=== PATIENT | male | born 1955 | race Caucasian/White ===

== ENCOUNTER 2022-11-28 11:13 | Inpatient (IN) | payer MEDICARE ==
[~2022-11-28] VITALS: Ht 182.9 cm; Wt 127.7 kg
[2022-11-28 11:52] LABS: BASOPHILS # (AUTO) 0.1 X10'3 (0-0.2); BASOPHILS % (AUTO) 0.6 % (0-1); EOSINOPHILS # (AUTO) 0.2 X10'3 (0-0.9); EOSINOPHILS % (AUTO) 2.1 % (0-6); HEMATOCRIT 32.5 % (42.0-52.0); HEMOGLOBIN 10.3 g/dl (14.0-17.9); LYMPHOCYTES # (AUTO) 0.9 X10'3 (1.1-4.8); LYMPHOCYTES % (AUTO) 10.4 % (21-51); MEAN CORPUSCULAR HEMOGLOBIN 21.9 PG (27.0-31.0); MEAN CORPUSCULAR HGB CONC 31.9 g/dL (33.0-36.5); MEAN CORPUSCULAR VOLUME 68.8 FL (78-98); MEAN PLATELET VOLUME 7.5 FL (7.4-10.4); MONOCYTES # (AUTO) 0.5 X10'3 (0-0.9); MONOCYTES % (AUTO) 5.7 % (2-12); NEUTROPHILS # (AUTO) 7.4 X10'3 (1.8-7.7); NEUTROPHILS % (AUTO) 81.2 % (42-75); PLATELET COUNT 516 X10'3 (140-440); RED BLOOD COUNT 4.72 X10'6 (4.70-6.10); RED CELL DISTRIBUTION WIDTH 17.7 % (11.5-14.5); WHITE BLOOD COUNT 9.1 X10'3 (4.5-11.0)
[2022-11-28] MEDS ORDERED: dextrose 50%-water 50ml dispensing syringe IV PRN (12:05)
[2022-11-28] MEDS ORDERED: dextrose 50%-water 50ml dispensing syringe IV ONE (12:05)
[2022-11-28 12:11] LABS: ALANINE AMINOTRANSFERASE 19 U/L (12-78); ALBUMIN 3.4 G/DL (3.4-5.0); ALBUMIN/GLOBULIN RATIO 1.1 (1.1-1.5); ALKALINE PHOSPHATASE 57 IU/L (46-116); ANION GAP 9 (8-16); ASPARTATE AMINO TRANSFERASE 20 U/L (10-37); BILIRUBIN,TOTAL 0.3 MG/DL (0.1-1.0); BLOOD UREA NITROGEN 17 MG/DL (7-18); BUN/CREATININE RATIO 15.6 (10.0-20.0); CHLORIDE 102 MMOL/L (99-107); CREATININE 1.09 MG/DL (0.60-1.10); GLUCOSE 89 MG/DL (70-104); SODIUM 139 MMOL/L (135-145); TOTAL CARBON DIOXIDE 28.2 MMOL/L (24-32); TOTAL PROTEIN 6.5 G/DL (6.4-8.2); eGFR 68 ML/MIN
[2022-11-28 12:14] LABS: POTASSIUM 2.7 MMOL/L (3.5-5.1)
[2022-11-28 12:17] LABS: PLATELET ESTIMATE INCREASED
[2022-11-28 12:18] LABS: ANISOCYTOSIS 1+; HYPOCHROMASIA 1+; MICROCYTOSIS 2+
--- NOTE | 2022-11-28 12:18 | NUR ---
Bs was 61mg/dl. Dr. Dent notified. D50 1 amp IV given as ordered. Addendum: 11/28/22 at 1240 by SALLY Repeat BS was 112mg/dl after the D50 IV given
[2022-11-28 12:19] LABS: ELLIPTOCYTES 1+; SPHEROCYTES FEW
--- NOTE | 2022-11-28 12:24 | NUR ---
SBP >200, Dr. Yoder notified about this. Per Dr. Yoder, the patient will be admitted. Addendum: 11/28/22 at 1351 by SALLY Hydralazine IV given for high BP prior to going to CT scan
[2022-11-28] MEDS ORDERED: potassium Cl 20 mEq SR tablet PO ONE (12:30)
[2022-11-28] MEDS ORDERED: ondansetron/PF 4mg/2ml inj IV PRN (13:10)
[2022-11-28] MEDS ORDERED: PERFLUTREN PROTEIN-A MICROSPHR (Optison) 0.22 MG/ML 3ML VIAL IV ONE (13:10)
[2022-11-28] MEDS ORDERED: magnesium hydroxide 30ml (MOM) UD suspension PO PRN (13:10)
[2022-11-28] MEDS ORDERED: mag hydrox/Alum hydrox/simeth 30ml oral suspension PO PRN (13:10)
[2022-11-28] MEDS ORDERED: magnesium 4gm in 100ml NS 100 ML IV PRN (13:10)
[2022-11-28] MEDS ORDERED: magnesium 2GM in 50ml NS 50 ML IV PRN (13:10)
[2022-11-28] MEDS ORDERED: potassium Cl 40MEQ/1/2NS 520ml 520 ML IV PRN (13:10)
[2022-11-28] MEDS ORDERED: magnesium Cl slow-release 64mg tablet PO PRN (13:10)
[2022-11-28] MEDS: dextrose 5%-1/2 normal saline 1,000 ML IV SCH (13:27)
[2022-11-28] MEDS: hydrALAZINE 20mg/ml inj. IV PRN (13:38)
[2022-11-28] MEDS: labetalol 100mg tablet PO SCH ×2 (13:56→19:58)
[2022-11-28] MEDS ORDERED: ATOR40TA72 PO (14:32)
[2022-11-28] MEDS ORDERED: PANT20TA18 PO (14:32)
[2022-11-28] MEDS ORDERED: FLUV100T21 PO (14:32)
[2022-11-28] MEDS ORDERED: TEMA30CA PO (14:32)
[2022-11-28] MEDS ORDERED: LORA-269 PO (14:32)
[2022-11-28] MEDS ORDERED: OXYB10TA30 PO (14:32)
[2022-11-28] MEDS ORDERED: CLON0.1T2 PO (14:32)
[2022-11-28] MEDS ORDERED: ROPI0.5T4 PO (14:32)
[2022-11-28] MEDS ORDERED: LIOT25TA12 PO (14:32)
[2022-11-28] MEDS ORDERED: METF-438 PO (14:32)
[2022-11-28] MEDS ORDERED: DORZ10DR10 EACHEYE (14:32)
[2022-11-28] MEDS ORDERED: LISI40TA13 PO (14:32)
[2022-11-28] MEDS ORDERED: BUSP15TA3 PO (14:32)
[2022-11-28] MEDS ORDERED: CHOL50004 PO (14:36)
[2022-11-28] MEDS ORDERED: ASPI-611 PO (14:36)
--- NOTE | 2022-11-28 14:40 | NUR ---
Paged Dr. Barr PAGER ID: [phone] MESSAGE: ABE Orozco RN RE: Brendan Cheney. Reporting second troponin 77, the first one was 73.
--- NOTE | 2022-11-28 16:02 | NUR ---
PAGER ID: [phone] MESSAGE: Benitez Tripathi Re: Deyvi Cheney [id number] Patient just had a critical Trop of 84 slightly elevated from previous Trop
[2022-11-28] MEDS ORDERED: LidoCAINE 2% Topical Jelly 11mL syringe TOP ONE (16:55)
[2022-11-28] MEDS: potassium Cl 20 mEq SR tablet PO PRN ×2 (17:24→22:02)
--- NOTE | 2022-11-28 17:38 | NUR ---
PAGER ID: [phone] MESSAGE: Benitez Tele [id number] Deyvi Penaloza Patient medications are all reviewed in the charting system at this time waiting for you to address them. Thanks Benitez.
[2022-11-28 18:00] VITALS: BP 178/81
--- NOTE | 2022-11-28 18:25 | NUR ---
Problems reprioritized. Patient report given TO BEKA RN, questions answered & plan of care reviewed with .
[2022-11-28] MEDS: docusate sod 100mg capsule PO SCH (19:58)
[2022-11-28] MEDS: K and/or MAG REPLACEMENT MC SCH (20:00)
[2022-11-28] MEDS: acetaminophen 325mg tablet PO PRN (20:02)
[2022-11-28] MEDS: furosemide 40mg/4ml inj IV SCH (21:10)
[2022-11-28 22:00] VITALS: BP 158/80
[2022-11-28] MEDS ORDERED: cloNIDine 0.1 mg tablet PO ONE (22:30)
[2022-11-28] MEDS ORDERED: LORazepam 1 MG tablet PO ONE (22:30)
[2022-11-29 02:00] VITALS: BP 167/68
--- NOTE | 2022-11-29 02:21 | NUR ---
I AGREE WITH STEAM SHOVEL OILER ASSESSMENT
[2022-11-29] MEDS: hydrALAZINE 20mg/ml inj. IV PRN ×2 (03:39→11:22)
[2022-11-29 05:39] LABS: BASOPHILS # (AUTO) 0.1 X10'3 (0-0.2); BASOPHILS % (AUTO) 1.3 % (0-1); EOSINOPHILS # (AUTO) 0.1 X10'3 (0-0.9); EOSINOPHILS % (AUTO) 1.6 % (0-6); HEMATOCRIT 32.9 % (42.0-52.0); HEMOGLOBIN 10.5 g/dl (14.0-17.9); LYMPHOCYTES # (AUTO) 1.2 X10'3 (1.1-4.8); LYMPHOCYTES % (AUTO) 13.7 % (21-51); MEAN CORPUSCULAR HGB CONC 31.9 g/dL (33.0-36.5); MEAN CORPUSCULAR VOLUME 69.1 FL (78-98); MEAN PLATELET VOLUME 7.7 FL (7.4-10.4); MONOCYTES # (AUTO) 0.9 X10'3 (0-0.9); MONOCYTES % (AUTO) 10.4 % (2-12); NEUTROPHILS # (AUTO) 6.5 X10'3 (1.8-7.7); PLATELET COUNT 540 X10'3 (140-440); RED BLOOD COUNT 4.76 X10'6 (4.70-6.10); RED CELL DISTRIBUTION WIDTH 17.2 % (11.5-14.5); WHITE BLOOD COUNT 8.9 X10'3 (4.5-11.0)
[2022-11-29 06:00] LABS: ALANINE AMINOTRANSFERASE 20 U/L (12-78); ALBUMIN 3.2 G/DL (3.4-5.0); ALBUMIN/GLOBULIN RATIO 1.1 (1.1-1.5); ALKALINE PHOSPHATASE 61 IU/L (46-116); ANION GAP 10 (8-16); ASPARTATE AMINO TRANSFERASE 19 U/L (10-37); BILIRUBIN,TOTAL 0.4 MG/DL (0.1-1.0); BLOOD UREA NITROGEN 11 MG/DL (7-18); BUN/CREATININE RATIO 9.3 (10.0-20.0); CALCIUM 8.6 MG/DL (8.5-10.1); CHLORIDE 102 MMOL/L (99-107); CREATININE 1.18 MG/DL (0.60-1.10); GLUCOSE 182 MG/DL (70-104); MAGNESIUM 1.5 MG/DL (1.5-2.4); POTASSIUM 3.2 MMOL/L (3.5-5.1); SODIUM 139 MMOL/L (135-145); TOTAL CARBON DIOXIDE 26.7 MMOL/L (24-32); TOTAL PROTEIN 6.2 G/DL (6.4-8.2); eGFR 62 ML/MIN
--- NOTE | 2022-11-29 06:20 | NUR ---
Patient in room PCU 3014. I have received report from Linda RN and had the opportunity to ask questions and assume patient care.
[2022-11-29 06:49] VITALS: BP 171/80
[2022-11-29] MEDS ORDERED: LIOthyronine 25mcg tablet PO SCH (08:00)
[2022-11-29] MEDS ORDERED: lisinopril 20mg tablet PO SCH ×2 (08:00→08:20)
[2022-11-29] MEDS: K and/or MAG REPLACEMENT MC SCH ×2 (08:00→20:00)
--- NOTE | 2022-11-29 08:03 | NUR ---
PAGER ID: [phone] MESSAGE: Benitez Tele [phone] re: [id number] Deyvi Penaloza In your notes it said patient is DNR but code status is still FULL. Thanks Benitez.
[2022-11-29] MEDS: furosemide 40mg/4ml inj IV SCH (08:29)
[2022-11-29] MEDS: enoxaparin 40mg/0.4ml syringe SUBCUT SCH (08:30)
[2022-11-29] MEDS: atorvastatin 20mg tablet PO SCH (08:31)
[2022-11-29] MEDS: pantoprazole 40mg Tablet.DR PO SCH (08:31)
[2022-11-29] MEDS: aspirin 81mg, enteric-coated 1 TAB TABLET.DR PO SCH (08:32)
[2022-11-29] MEDS: busPIRone 15mg tablet PO SCH ×3 (08:32→20:43)
[2022-11-29] MEDS: cholecalciferol (vitamin D3) 1,000 unit (25mcg) tablet PO SCH (08:32)
[2022-11-29] MEDS: potassium Cl 20 mEq SR tablet PO PRN ×3 (08:33→16:29)
[2022-11-29] MEDS: docusate sod 100mg capsule PO SCH ×2 (08:33→20:43)
[2022-11-29] MEDS: labetalol 100mg tablet PO SCH ×2 (08:33→20:43)
[2022-11-29] MEDS: LORazepam 1 MG tablet PO SCH ×2 (08:34→20:41)
[2022-11-29] MEDS: acetaminophen 325mg tablet PO PRN (08:36)
[2022-11-29] MEDS: oxybutynin 5mg tablet PO SCH ×2 (08:36→20:42)
[2022-11-29] MEDS: dorzolamide/timolol (Cosopt) ophthalmic drops 10ml bottle EACHEYE SCH ×2 (09:23→20:44)
[2022-11-29] MEDS: dextrose 5%-1/2 normal saline 1,000 ML IV SCH (09:29)
[2022-11-29] MEDS: liothyronine sod 5mcg tablet PO SCH (09:45)
--- NOTE | 2022-11-29 10:04 | NUR ---
PAGER ID: [phone] MESSAGE: Oneil JONES Tele, [phone], rm # [phone] Shravan Faye stated does not want to be a DNR and wants a Full code. I believe it needs more discussion with pt. due to changing his mind. Thanks.
[2022-11-29 11:13] VITALS: BP 172/87
--- NOTE | 2022-11-29 12:34 | NUR ---
pt. IV bleeding, DC IV and wrapped in Coban and gauze. changed bedding and gown. Cannula fully intact upon DC. pt. resting comfortable in bed with visitor at bedside.
--- NOTE | 2022-11-29 14:43 | NUR ---
Nutrition Consult "hypoglycemia": Pt admit DX hypoglycemic hx DM takes metformin BID and 80 units Lantus daily per EMR. Pt passed out on toilet at home w/ Glu 38mg/dl and hx multiple falls as well as hypoglycemic events recently per EMR. A1C pending this admit though DM ed likely not appropriate at this time given hx frequent low Glu per EMR; will monitor for A1C results. Pt reports no decreased intake or wt loss per RN Malnutrition Screen. Addendum: 11/29/22 at [address] Amended: Links added.
[2022-11-29 14:54] LABS: HEMOGLOBIN A1C 6.5 % (4.5-6.2)
--- NOTE | 2022-11-29 15:39 | NUR ---
pt. sat 02 dropped to 79% pulse ox. put nasal cannula 2L brought 02 up to 98% will continue to monitor.
--- NOTE | 2022-11-29 17:03 | NUR ---
took pt. off 02 cannula 2L pt. went to 89%02, told pt. to cough and deep breathe and brought 02 up to 98%, educated pt. to take deep breaths slowly in and out, will continue to monitor.
--- NOTE | 2022-11-29 17:16 | NUR ---
Oneil JONES Tele, ext. [phone], rm# [phone] Shravan Faye pt. evening blood glucose 286. we still don't have hyperglycemic protocol. would you like me to add that on? please call if you would like. Addendum: 11/29/22 at 1744 by Oneil Heaton RN CALLED BACK, STATED TO PUT PT. ON THE HYPERGLYCEMIC PROTOCOL.
[2022-11-29] MEDS ORDERED: DEXTROSE 15 GM of carb/4 tabs (each vial/BOTTLE has 4 tablets) PO PRN ×2 (17:45)
[2022-11-29] MEDS ORDERED: dextrose 50%-water 50ml dispensing syringe IV PRN ×2 (17:45)
[2022-11-29] MEDS ORDERED: MESSAGE TO PHARMACY PO ONE (17:45)
[2022-11-29] MEDS ORDERED: glucagon, human recombinant 1mg kit SUBCUT PRN (17:45)
[2022-11-29 18:00] VITALS: BP 158/72
--- NOTE | 2022-11-29 18:36 | NUR ---
Problems reprioritized. Patient report given to Jus RN, questions answered & plan of care reviewed with .
[2022-11-29] MEDS ORDERED: insulin glargine (Lantus) pen - multi-dose SQ SCH (21:00)
[2022-11-29] MEDS ORDERED: cloNIDine 0.1 mg tablet PO SCH (21:00)
[2022-11-29] MEDS ORDERED: temazepam 15mg capsule PO SCH (21:00)
[2022-11-29] MEDS ORDERED: fluvoxamine 25 MG tablet PO SCH (21:00)
[2022-11-29] MEDS ORDERED: ROPINIRole 0.25mg tablet PO SCH (21:00)
[2022-11-29] MEDS: insulin Lispro (HumaLOG) vial - multi-dose SQ SCH (21:34)
[2022-11-30 02:00] VITALS: BP 140/63
--- NOTE | 2022-11-30 05:40 | NUR ---
AGREE WITH COMMUNITY DIRECTOR ASSESSMENTS
[2022-11-30 06:52] LABS: BASOPHILS # (AUTO) 0.1 X10'3 (0-0.2); BASOPHILS % (AUTO) 1.3 % (0-1); EOSINOPHILS # (AUTO) 0.1 X10'3 (0-0.9); EOSINOPHILS % (AUTO) 1.4 % (0-6); HEMATOCRIT 33.9 % (42.0-52.0); HEMOGLOBIN 10.8 g/dl (14.0-17.9); LYMPHOCYTES # (AUTO) 0.8 X10'3 (1.1-4.8); MEAN CORPUSCULAR HEMOGLOBIN 22.2 PG (27.0-31.0); MEAN CORPUSCULAR VOLUME 69.4 FL (78-98); MEAN PLATELET VOLUME 8.1 FL (7.4-10.4); MONOCYTES # (AUTO) 0.7 X10'3 (0-0.9); MONOCYTES % (AUTO) 6.7 % (2-12); NEUTROPHILS # (AUTO) 8.4 X10'3 (1.8-7.7); NEUTROPHILS % (AUTO) 82.6 % (42-75); PLATELET COUNT 564 X10'3 (140-440); RED BLOOD COUNT 4.88 X10'6 (4.70-6.10); RED CELL DISTRIBUTION WIDTH 18.2 % (11.5-14.5); WHITE BLOOD COUNT 10.2 X10'3 (4.5-11.0)
[2022-11-30 07:14] LABS: ALANINE AMINOTRANSFERASE 21 U/L (12-78); ALBUMIN 3.4 G/DL (3.4-5.0); ALBUMIN/GLOBULIN RATIO 1.1 (1.1-1.5); ALKALINE PHOSPHATASE 66 IU/L (46-116); ANION GAP 12 (8-16); ASPARTATE AMINO TRANSFERASE 16 U/L (10-37); BILIRUBIN,TOTAL 0.4 MG/DL (0.1-1.0); BLOOD UREA NITROGEN 16 MG/DL (7-18); CALCIUM 9.7 MG/DL (8.5-10.1); CHLORIDE 102 MMOL/L (99-107); CREATININE 1.33 MG/DL (0.60-1.10); GLUCOSE 270 MG/DL (70-104); MAGNESIUM 1.6 MG/DL (1.5-2.4); POTASSIUM 3.9 MMOL/L (3.5-5.1); SODIUM 142 MMOL/L (135-145); TOTAL CARBON DIOXIDE 28.1 MMOL/L (24-32); TOTAL PROTEIN 6.6 G/DL (6.4-8.2); eGFR 54 ML/MIN
[2022-11-30 07:30] VITALS: BP 169/82
[2022-11-30] MEDS: dorzolamide/timolol (Cosopt) ophthalmic drops 10ml bottle EACHEYE SCH (07:55)
[2022-11-30] MEDS: pantoprazole 40mg Tablet.DR PO SCH (07:56)
[2022-11-30] MEDS: liothyronine sod 5mcg tablet PO SCH (07:57)
[2022-11-30] MEDS: LORazepam 1 MG tablet PO SCH (07:58)
[2022-11-30] MEDS: docusate sod 100mg capsule PO SCH (07:58)
[2022-11-30] MEDS: cholecalciferol (vitamin D3) 1,000 unit (25mcg) tablet PO SCH (07:58)
[2022-11-30] MEDS: atorvastatin 20mg tablet PO SCH (07:59)
[2022-11-30] MEDS: oxybutynin 5mg tablet PO SCH (07:59)
[2022-11-30] MEDS: aspirin 81mg, enteric-coated 1 TAB TABLET.DR PO SCH (07:59)
[2022-11-30] MEDS: busPIRone 15mg tablet PO SCH ×2 (07:59→13:48)
[2022-11-30] MEDS: labetalol 100mg tablet PO SCH (07:59)
[2022-11-30] MEDS: K and/or MAG REPLACEMENT MC SCH (08:00)
[2022-11-30] MEDS: acetaminophen 325mg tablet PO PRN (08:00)
[2022-11-30] MEDS: enoxaparin 40mg/0.4ml syringe SUBCUT SCH (08:00)
[2022-11-30] MEDS: insulin Lispro (HumaLOG) vial - multi-dose SQ SCH (08:11)
[2022-11-30 08:30] VITALS: BP_SYST 160; BP_SYST 174; BP_DIAS 65; BP_DIAS 84
--- NOTE | 2022-11-30 08:45 | NUR ---
F/u 11/30: Pt A1C results 6.5% appropriate per ADA guidelines. DM ed not appropriate at this time. Addendum: 11/30/22 at [address] Amended: Links added.
[2022-11-30] MEDS ORDERED: saliva stimulant agent 45ml spray MM PRN (09:00)
--- NOTE | 2022-11-30 09:30 | NUR ---
HOSPITALIST AWARE OF PT'S SYMPTOMS WHILE STANDING AND ORTHOSTATIC CHANGES IN BP AND HR. MADE AWARE THAT PT. C/O OF R UPPER LEG PAIN, AND INCREASED NEED OF 02. STATES HE PLANS ON DISCHARGING PT. pT. HAD OP UROLOGIST AND WILL GO HOME WITH F/C PER MD.
[2022-11-30 11:00] VITALS: BP 119/53
--- NOTE | 2022-11-30 11:10 | NUR ---
O2 Sat at rest on room air:_88__% If below 89%: Recovery O2 Sat at rest on _2__LPM:__93_%:___% via (mask/nasal cannula, etc..) No further documentation is necessary. If O2 Sat did not drop below 89% on room air,ambulate patient on room air. O2 Sat while ambulating on room air:_86__% Recovery O2 Sat while ambulating on __98_LPM:_2__% No further documentation is necessary. If patient does not drop below 89% while ambulating, he/she does not qualify for home O2.
[2022-11-30] MEDS ORDERED: LABE100T8 PO (12:08)
--- NOTE | 2022-11-30 14:14 | NUR ---
DISCHARGE NOTE: Reviewed discharge paperwork with pt. and spouse. Written and verbal education given on Ha1c, diabetes, hypoglycemia, DM meds and possible ASE, new medication labetalol, how to monitor BG and BP, diet, exercise, fall risk reduction in the home, infection control, home 02 and catheter use/care, f/u instructions from MD. Spouse gave good feedback verbally and with demonstration on f/c care. Pt. passive in his care. Pt's has called [facility] already for f/u appointment. Pt. states Dr. Barr told him just to take 40 units of Lantus at home with his metformin and not 80 units . Tele has been removed. Currently waiting on home 02 to arrive from [facility] and then PIV can be DC'd. Pt. currently getting dressed with his spouse's assistance.
[2022-11-30 15:04] VITALS: BP 130/58
--- NOTE | 2022-11-30 17:22 | NUR ---
02 delivered from [facility]. Pt. left with all of his belongings. Escorted in a w/c to downstairs to D/c home
== END 2022-11-30 17:19 | disposition home or self-care (01) | DRG 637 ==
LOC: ER 11:14 → ED HOLD 13:18 → PCU 3S 14:50
PROVIDERS: ADMIT Family Medicine; ATTEND Family Medicine
DX: E11.649 Type 2 diabetes mellitus with hypoglycemia without coma (principal); G93.41 Metabolic encephalopathy; I21.A1 Myocardial infarction type 2; I24.8 Other forms of acute ischemic heart disease; E87.6 Hypokalemia; E78.5 Hyperlipidemia, unspecified; G25.81 Restless legs syndrome; I10 Essential (primary) hypertension; R60.9 Edema, unspecified; R33.9 Retention of urine, unspecified; I16.0 Hypertensive urgency; F32.A Depression, unspecified; F41.9 Anxiety disorder, unspecified; Z79.84 Long term (current) use of oral hypoglycemic drugs; Z88.0 Allergy status to penicillin
CPT/HCPCS: 36415; 70450; 71045; 80053; 82948; 83036; 83735; 83880; 84484; 85008; 85025; 87081; 93005; 93306; 97110; 97161; 97530; 99285; A4314; A4358; A4615; A5200; G0378; J0360; J1650; J1815; J1940; J2405; J3490; J7121

== ENCOUNTER 2022-12-08 07:41 | Inpatient (IN) | payer MEDICARE ==
[~2022-12-08] VITALS: Ht 185.4 cm; Wt 127.7 kg
[~2022-12-08 07:41] MED LIST: ASPI-611 PO; ATOR40TA72 PO; BUSP15TA3 PO; CHOL50004 PO; CLON0.1T2 PO; DORZ10DR10 EACHEYE; FLUV100T21 PO; LABE100T8 PO; LIOT25TA12 PO; LISI40TA13 PO; LORA-269 PO; METF-438 PO; OXYB10TA30 PO; PANT20TA18 PO; ROPI0.5T4 PO; TEMA30CA PO
[2022-12-08] MEDS ORDERED: DEXTROSE 15 GM of carb/4 tabs (each vial/BOTTLE has 4 tablets) PO STA (08:22)
[2022-12-08 08:58] LABS: BASOPHILS # (AUTO) 0.1 X10'3 (0-0.2); EOSINOPHILS # (AUTO) 0.4 X10'3 (0-0.9); HEMATOCRIT 30.1 % (42.0-52.0); HEMOGLOBIN 9.6 g/dl (14.0-17.9); MONOCYTES # (AUTO) 0.9 X10'3 (0-0.9); RED CELL DISTRIBUTION WIDTH 17.7 % (11.5-14.5)
[2022-12-08 09:00] LABS: EOSINOPHILS % (AUTO) 3.5 % (0-6); LYMPHOCYTES # (AUTO) 1.2 X10'3 (1.1-4.8); LYMPHOCYTES % (AUTO) 10.2 % (21-51); MEAN CORPUSCULAR HEMOGLOBIN 21.9 PG (27.0-31.0); MEAN CORPUSCULAR VOLUME 68.4 FL (78-98); MEAN PLATELET VOLUME 7.9 FL (7.4-10.4); MONOCYTES % (AUTO) 7.8 % (2-12); NEUTROPHILS # (AUTO) 9.1 X10'3 (1.8-7.7); NEUTROPHILS % (AUTO) 77.5 % (42-75); PLATELET COUNT 586 X10'3 (140-440); RED BLOOD COUNT 4.41 X10'6 (4.70-6.10); WHITE BLOOD COUNT 11.7 X10'3 (4.5-11.0)
[2022-12-08 09:01] LABS: ALANINE AMINOTRANSFERASE 21 U/L (12-78); ALBUMIN 2.8 G/DL (3.4-5.0); ALBUMIN/GLOBULIN RATIO 0.8 (1.1-1.5); ANION GAP 12 (8-16); ASPARTATE AMINO TRANSFERASE 19 U/L (10-37); BILIRUBIN,TOTAL 0.2 MG/DL (0.1-1.0); BLOOD UREA NITROGEN 13 MG/DL (7-18); BUN/CREATININE RATIO 10.1 (10.0-20.0); CALCIUM 9.9 MG/DL (8.5-10.1); CHLORIDE 103 MMOL/L (99-107); CREATININE 1.29 MG/DL (0.60-1.10); SODIUM 141 MMOL/L (135-145); TOTAL CARBON DIOXIDE 26.4 MMOL/L (24-32); TOTAL PROTEIN 6.4 G/DL (6.4-8.2); eGFR 56 ML/MIN
[2022-12-08 09:03] LABS: GLUCOSE 42 MG/DL (70-104)
[2022-12-08 09:04] LABS: ALKALINE PHOSPHATASE 65 IU/L (46-116); POTASSIUM 2.8 MMOL/L (3.5-5.1)
--- NOTE | 2022-12-08 09:04 | NUR ---
GAVE PT TURKEY SANDWHCH AND MILK.
[2022-12-08] MEDS ORDERED: potassium Cl 20 mEq SR tablet PO STA (09:05)
[2022-12-08 09:06] LABS: CLARITY,URINE CLOUDY (Clear); COLOR,URINE RED (Yellow); GLUCOSE, URINE NEGATIVE (Neg); KETONES,URINE TRACE mg/dl (Neg); LEUKOCYTE ESTERASE ,URINE TRACE (Neg); OCCULT BLOOD,URINE LARGE (Neg); PH,URINE 6.5 (4.8-8.0); PROTEIN,URINE >=300 mg/dl (Neg)
[2022-12-08 09:11] LABS: UA COLLECTION TYPE FOLEY CATH
[2022-12-08 09:13] LABS: NITRITES, URINE NEGATIVE (Neg); RBC,URINE TNTC /HPF (0-2)
[2022-12-08 09:14] LABS: BACTERIA,URINE 1+ /HPF (Neg); WBC,URINE 20-30 /HPF (0-4)
[2022-12-08 09:15] LABS: HYALINE CASTS 0-3 /LPF (NEGATIVE); SQUAMOUS EPITHELIAL CELL,UR NONE SEEN /LPF (FEW)
[2022-12-08 09:21] LABS: PLATELET ESTIMATE INCREASED
[2022-12-08 09:22] LABS: ANISOCYTOSIS 1+; MICROCYTOSIS 2+
[2022-12-08 09:23] LABS: ACANTHOCYTES 1+; ELLIPTOCYTES 1+
[2022-12-08] MEDS ORDERED: CefTRIAXone/D5W-Rocephin 1gm 50 ML IV ONE (09:40)
[2022-12-08] MEDS ORDERED: LidoCAINE 2% Topical Jelly 11mL syringe TOP ONE (09:45)
[2022-12-08] MEDS ORDERED: potassium CL 20mEq in D5-1/2NS 1,000 ML IV SCH (10:10)
[2022-12-08] MEDS ORDERED: dextrose 50%-water 50ml dispensing syringe IV ONE (11:25)
[2022-12-08 13:05] VITALS: BP 186/79
[2022-12-08] MEDS ORDERED: mag hydrox/Alum hydrox/simeth 30ml oral suspension PO PRN (14:10)
[2022-12-08] MEDS ORDERED: ondansetron/PF 4mg/2ml inj IV PRN (14:10)
[2022-12-08] MEDS ORDERED: dextrose 5%-1/2 normal saline 1,000 ML IV SCH (14:10)
[2022-12-08] MEDS ORDERED: magnesium hydroxide 30ml (MOM) UD suspension PO PRN (14:10)
[2022-12-08] MEDS ORDERED: magnesium Cl slow-release 64mg tablet PO PRN (14:10)
[2022-12-08] MEDS ORDERED: magnesium 2GM in 50ml NS 50 ML IV PRN (14:10)
[2022-12-08] MEDS ORDERED: acetaminophen 650mg rectal suppository RC PRN (14:10)
[2022-12-08] MEDS ORDERED: metoclopramide 5 mg/ml inj IV PRN (14:10)
[2022-12-08] MEDS ORDERED: HYDROcodone/acetaminophen 5mg/325mg tablet PO PRN (14:10)
[2022-12-08] MEDS ORDERED: potassium Cl 40MEQ/1/2NS 520ml 520 ML IV PRN (14:10)
[2022-12-08] MEDS ORDERED: bisacodyl 10mg suppository rectal RC PRN (14:10)
[2022-12-08] MEDS ORDERED: potassium Cl 20 mEq SR tablet PO PRN ×2 (14:10)
[2022-12-08] MEDS ORDERED: HYDROcodone/acetaminophen 10/325mg tab PO PRN (14:10)
[2022-12-08] MEDS ORDERED: acetaminophen 325mg tablet PO PRN ×2 (14:10)
[2022-12-08] MEDS ORDERED: ondansetron 4mg rapidly disintigrating tab PO PRN (14:10)
[2022-12-08] MEDS ORDERED: magnesium 4gm in 100ml NS 100 ML IV PRN (14:10)
[2022-12-08 14:53] LABS: MAGNESIUM 1.8 MG/DL (1.5-2.4)
[2022-12-08] MEDS ORDERED: docusate sod 100mg capsule PO SCH (20:00)
[2022-12-08] MEDS ORDERED: heparin, porcine 5000 units/ml vial SQ SCH (20:00)
[2022-12-08] MEDS ORDERED: K and/or MAG REPLACEMENT MC SCH (20:00)
[2022-12-08] MEDS ORDERED: temazepam 15mg capsule PO PRN (21:00)
[2022-12-09] MEDS ORDERED: CefTRIAXone/D5W-Rocephin 1gm 50 ML IV SCH (08:00)
== END 2022-12-08 15:10 | disposition left against medical advice (07) | DRG 638 ==
LOC: ER 07:42 → ED HOLD 14:14
PROVIDERS: ADMIT Family Medicine; ATTEND Family Medicine
DX: E11.649 Type 2 diabetes mellitus with hypoglycemia without coma (principal); N39.0 Urinary tract infection, site not specified; Z53.29 Procedure and treatment not carried out because of patient's decision for other reasons; Z80.0 Family history of malignant neoplasm of digestive organs; Z83.3 Family history of diabetes mellitus; Z83.511 Family history of glaucoma; Z88.0 Allergy status to penicillin; Z88.5 Allergy status to narcotic agent; Z82.3 Family history of stroke; E87.6 Hypokalemia; R31.9 Hematuria, unspecified
CPT/HCPCS: 36415; 74176; 80053; 81001; 82948; 83605; 83735; 85008; 85025; 87040; 87077; 87088; 99285; A4314; G0378; J0696; J3480; J3490